=== PATIENT | female | born 2000 | race Caucasian/White ===

== ENCOUNTER 2021-01-12 19:19 | Emergency (ER) | payer OTHER ==
[~2021-01-12] VITALS: Ht 170.2 cm; Wt 108.9 kg
[2021-01-12] MEDS ORDERED: DIFLUCAN100 MG (19:42)
[2021-01-12] MEDS ORDERED: ZYPREXA10 M1 (19:42)
[2021-01-12] MEDS ORDERED: CLONIDINE HCL0.1 MG PO (19:42)
== END 2021-01-12 22:04 | disposition home or self-care (01) ==
LOC: ED 19:19
DX: M54.5 Low back pain (principal); Z88.8 Allergy status to other drugs, medicaments and biological substances; Z79.899 Other long term (current) drug therapy
CPT/HCPCS: 80053; 81001; 84443; 84703; 85025; 93005; 93010; 99283; G0480

== ENCOUNTER 2023-04-22 07:40 | Day surgery (SDC) | payer OTHER ==
[~2023-04-22] VITALS: Ht 172.7 cm; Wt 120.0 kg
--- NOTE | 2023-04-22 07:35 | NUR ---
PT HAS NOT ARRIVED. ATTEMPTED TO CALL PT WITH NO ANSWERS.
[~2023-04-22 07:40] MED LIST: CLONIDINE HCL0.1 MG PO; CYMBALTA30 MG PO; DIFLUCAN100 MG; OSTERA TABLET1 EACH PO; ZYPREXA10 M1 PO
--- NOTE | 2023-04-22 07:40 | NUR ---
DS ROUNDS. PT GONE FOR PROCEDURE. PROVIDED PRAYER.
[2023-04-22 07:55] VITALS: BP 137/68
[2023-04-22 08:16] LABS: BASOPHILS 0.4 % (0-2); EOSINOPHILS 2.4 % (0-6); HEMATOCRIT 39.6 % (35.0-50.0); HEMOGLOBIN 13.1 g/dL (12.0-18.0); LYMPHOCYTES 26.1 % (24-44); MCH 27.9 (27-36); MCHC 33.1 g/dl (30-36); MCV 84.3 fl (81-99); MONOCYTES 7.7 % (0-12); NEUTROPHILS 63.4 % (39-80); PLATELET COUNT 391 K/uL (140-440); RDW 13.7 (10.5-15.0)
--- NOTE | 2023-04-22 08:20 | NUR ---
PT SITTING UP IN BED CALM. PT ALLOWED THE IV TO BE STARTED AND VITAL SIGNS TO BE TAKEN. NO ORAL VERSED GIVEN AT THIS TIME THE PT IS CALM AND COOPERATIVE. DR. MCCOY SPOKE WITH THE PT. PT'S CAREGIVER AT THE BEDSIDE. WARM BLANKET AND ANOTHER PILLOW PROVIDED PER PT REQUEST.
[2023-04-22 08:24] LABS: ANION GAP 14.8 (7-21); BUN/CREATININE RATIO 12.64 (6.0-28.6); CALCIUM 9.4 mg/dL (8.5-10.1); CREATININE, SERUM 0.87 mg/dL (0.55-1.02); POTASSIUM 3.8 mmol/L (3.5-5.1)
--- NOTE | 2023-04-22 10:21 | NUR ---
04/22/23 1021 Sheets,Cira 1013 PT ARRIVED TO PACU ON 10L WITH ORAL AIRWAY IN PLACE. JAW THRUST NEEDED TO MAINTAIN AIRWAY. 1014 PT HEAD TURNED TO SIDE AND JAW THRUST NO LONGER NEEDED. PT SWALLOWING OFF AND ON. PT EYES REMAIN CLOSED AND AIRWAY IN PLACE.
[2023-04-22 10:44] VITALS: BP 112/73
--- NOTE | 2023-04-22 10:50 | NUR ---
PT ARRIVES BACK TO DAY SURGERY ALERT AND ORIENTED. PT REPORTS NO PAIN OR NAUSEA. PT ASKING ON REPEAT "DID HE FIX MY TEETH?". PT UPDATED THAT HER TEETH WERE FIXED. PT PROVIDED JELL-O AND WATER PER HER REQUEST. BED IN THE LOWEST POSITION, BED RAIL UP X1, CALL LIGHT PROVIDED, PT'S CAREGIVER AT THE BEDSIDE.
[2023-04-22] MEDS ORDERED: HYDROCODON-ACE1 EA10 PO (11:20)
[2023-04-22 11:46] VITALS: BP 129/90
--- NOTE | 2023-04-22 12:01 | NUR ---
1136- PT ABLE TO AMBULATE TO THE RESTROOM AND URINATE. PT DRESSED HERSELF WITH MINIMAL ASSISTANCE WHILE IN THE RESTROOM. PT TOLERATED WELL. 1140- PT SITTING BACK IN BED. DC INSTRUCTIONS PROVIDED TO PT AND PT'S CAREGIVER. ALL QUESTIONS ANSWERED. PT REPORTS NO PAIN OR NAUSEA AND PT EXPRESSES SHE WANTS TO GO HOME. 1150- PT ABLE TO AMBULATE INTO THE WHEELCHAIR AND TAKEN TO THE FRONT OF THE HOSPITAL AND ASSISTED INTO THE PASSENGER SIDE OF THE VEHICLE.
== END 2023-04-22 11:50 | disposition home or self-care (01) ==
LOC: DS 07:40
PROVIDERS: Nurse Anesthetist, Certified Registered; ATTEND Dentist General Practice
PROC: 0CDWXZ1 Extraction of Upper Tooth, Multiple, External Approach (ICD-10-PCS; principal; 2023-04-22 09:00)
PROC: 0CDXXZ1 Extraction of Lower Tooth, Multiple, External Approach (ICD-10-PCS; principal; 2023-04-22 09:00)
DX: K05.10 Chronic gingivitis, plaque induced (principal); K02.9 Dental caries, unspecified; K12.2 Cellulitis and abscess of mouth
CPT/HCPCS: 00170; 36415; 80048; 84703; 85025; J0330; J1100; J1885; J2250; J2405; J2704; J2765; J3010; J3490; J7121

== ENCOUNTER 2024-07-13 06:55 | Day surgery (SDC) | payer OTHER ==
[~2024-07-13] VITALS: Ht 175.3 cm; Wt 126.2 kg
[~2024-07-13 06:55] MED LIST changes: +HYDROCODON-ACE1 EA10 PO; +LACTATED RINGER'S 1,000 ML IV SCH; +LEVONOR-ETH ES1 EAC1 PO
[2024-07-13] MEDS ORDERED: IBLOOD GLUCOSE TEST STRIP 1 EA TEST VI PRN ×2 (07:00→10:00)
[2024-07-13] MEDS ORDERED: LIDOCAINE HCL 1% 5 ML SDV INJ ONE (07:00)
[2024-07-13 07:19] VITALS: BP 131/91
[2024-07-13] MEDS ORDERED: ACETAMINOPHEN500 M1 PO (07:28)
[2024-07-13] MEDS ORDERED: VITAMIN D250 MCG PO (07:31)
[2024-07-13] MEDS ORDERED: SUCCINYLCHOLINE IN 0.9% NACL 200 MG/10 ML SYRINGE ONE (08:39)
[2024-07-13] MEDS ORDERED: DEXAMETHASONE SOD PHOS 4 MG/ML VIAL ONE (08:39)
[2024-07-13] MEDS ORDERED: ROCURONIUM BROMIDE 50 MG/5 ML SYR ONE (08:39)
[2024-07-13] MEDS ORDERED: MIDAZOLAM HCL 2 MG/2 ML VIAL ONE (08:39)
[2024-07-13] MEDS ORDERED: propofoL 200 MG/20 ML VIAL ONE (08:39)
[2024-07-13] MEDS ORDERED: ondansetron HCL 4 MG/2 ML VIAL ONE (08:39)
[2024-07-13] MEDS ORDERED: LIDOCAINE HCL 2% 5 ML SDV ONE (08:39)
[2024-07-13] MEDS ORDERED: fentaNYL citrate 100 MCG/2 ML VIAL ONE (08:42)
[2024-07-13] MEDS ORDERED: SEVOFLURANE 250 ML BTL INH ONE (09:08)
[2024-07-13] MEDS ORDERED: GLYCOPYRROLATE 1 MG/5 ML MDV ONE (09:13)
[2024-07-13] MEDS ORDERED: KETOROLAC TROMETHAMINE 30 MG/ML VIAL IV PRN (10:00)
[2024-07-13] MEDS ORDERED: NALOXONE HCL 0.4 MG SYR IV PRN (10:00)
[2024-07-13] MEDS ORDERED: ondansetron HCL 4 MG/2 ML VIAL IV PRN (10:00)
[2024-07-13] MEDS ORDERED: droPERidol 5 MG/2 ML VIAL IV PRN (10:00)
[2024-07-13] MEDS ORDERED: fentaNYL citrate 50 MCG/ML SDV IV PRN (10:00)
[2024-07-13] MEDS ORDERED: dexmedeTOMIDine HCl 200 MCG/2 ML VIAL ONE (10:29)
--- NOTE | 2024-07-13 11:10 | NUR ---
07/13/24 1110 Beth Cho 1057-PT ARRIVES TO PACU, VIA STRETCHER, PT REACTIVE TO TACTILE AND VERBAL STIMULI BUT RESTS W/ EYES CLOSED, VSS ON 6L VIA MASK, RR EVEN AND UNLABORED. 1108-PT AWAKENS ON OWN, TITRATED TO RA, VSS ON RA. PT DENIES PAIN OR NAUSEA. PT FALLS BACK TO SLEEP EASILY, RR EVEN AND UNLABORED.
[2024-07-13 11:23] VITALS: BP 123/79
--- NOTE | 2024-07-13 11:49 | NUR ---
1120 PT ARRIVED TO DAY SURGERY TX ROOM VIA CR. REPORT TAKEN FROM CYNTHIA MARIA. PT SITTING UPRIGHT AND TALKING, PT AWAKE AND ORIENTED. PT REPORTS NO PAIN AT THIS TIME. PT REPORTS NO NAUSEA. VITALS TAKEN. IV ASSESSED. BED LOW AND LOCKED, CALL LIGHT WITHIN REACH. CARE TAKERS IN ROOM. 1145 PT REPORTS NEEDING TO USE BATHROOM, PT ABLE TO AMBULATE TO BATHROOM AND VOIDS 900 MLS OF CLEAR YELLOW URINE. PT ABLE TO AMBULTE BACK TO BED, PT ABLE TO TOLERATE PO FLUIDS AND JELLO.
[2024-07-13 12:07] VITALS: BP 129/80
--- NOTE | 2024-07-13 12:29 | NUR ---
1200 HOURLY ROUNDING DONE WITH PT. VITALS TAKEN. IV ASSESSED. DISCHARGE INFORMATION GONE OVER WITH PT AND CARE GIVERS. NO QUESTIONS AT THIS TIME. PT REPORTS NO PAIN OR NAUSEA AT THIS TIME. PT ORIENTED TO BASELINE. 1205 IV DISCONTINUED FOR DISCHARGE, WRAPPED SITE WITH GAUZE AND COBAN. 1210 PT DRESSING WITH CARE GIVERS ASSISTANCE. 1220 PT DISCHARGED FROM DAY SURGERY VIA WHEELCHAIR TO FRONT OF THE HOSPITAL TO BOAT DOCK OPERATOR'S CAR.
== END 2024-07-13 12:20 | disposition home or self-care (01) ==
LOC: DS 06:55 → OPS 06:55 → DS 09:15 → OPS 12:20
PROVIDERS: ATTEND Dentist General Practice
PROC: 0CDWXZ2 Extraction of Upper Tooth, All, External Approach (ICD-10-PCS; 2024-07-13)
PROC: 0CDXXZ2 Extraction of Lower Tooth, All, External Approach (ICD-10-PCS; principal; 2024-07-13 09:15)
DX: K02.9 Dental caries, unspecified (principal); R62.50 Unspecified lack of expected normal physiological development in childhood; F90.9 Attention-deficit hyperactivity disorder, unspecified type; F84.0 Autistic disorder; E66.813 Obesity, class 3; E78.2 Mixed hyperlipidemia; Z88.1 Allergy status to other antibiotic agents
CPT/HCPCS: 00170; 36415; 84703; J0330; J1100; J2003; J2250; J2405; J2704; J3010; J3490; J7121